=== PATIENT | male | born 1955 | race Caucasian/White ===

== ENCOUNTER → 2017-11-15 | Outpatient (CLI) | payer OTHER ==
[2017-11-15 07:59] LABS: Basophils # (auto) 0 uL; Basophils % (auto) 0.7 % (0.0-2.0); Eosinophils # (auto) 0.1 uL; Eosinophils % (auto) 2.6 % (0.0-7.0); Hematocrit 45.7 % (41.0-53.0); Hemoglobin 15.9 g/dL (13.5-17.5); Lymphocytes % (auto) 38.7 % (10.0-50.0); Mean Corpuscular Hemoglobin 31.6 pg (28.0-32.0); Mean Corpuscular Hgb Conc. 34.8 g/dL (32.0-36.0); Mean Corpuscular Volume 90.8 fL (80.0-100.0); Monocytes # (auto) 0.4 uL; Monocytes % (auto) 8.7 % (0.0-12.0); Neutrophils # (auto) 2.5 uL; Neutrophils % (auto) 49.3 % (37.0-80.0); Platelet Count (auto) 228 10^3/uL (140-450); Red Blood Cells 5.03 10^6/uL (4.5-5.90); Red Cell Distribution Width 12.7 % (11.8-14.3); White Blood Cell 5.1 10^3/uL (4.4-10.8)
[2017-11-15 08:17] LABS: Urine Bacteria NONE SEEN /hpf (None Seen); Urine Blood Negative /uL (Negative); Urine Specific Gravity 1.018 (1.001-1.035); Urine WBC 1 /hpf (0 - 3)
[2017-11-15 09:06] LABS: Prostate Specific Antigen 0.71 ng/mL (0.0-4.0)
[2017-11-15 09:14] LABS: Albumin 4.3 g/dL (3.4-5.0); BUN/Creatinine Ratio 22.4; Bilirubin, Total 0.6 mg/dL (0.2-1.0); Potassium 3.9 mmol/L (3.5-5.1); Total Protein 7.8 g/dL (6.4-8.2)
== END | disposition home or self-care (01) ==
LOC: LAB 07:41
PROVIDERS: ATTEND Family Medicine
DX: I10 Essential (primary) hypertension (principal); I48.91 Unspecified atrial fibrillation; Z83.3 Family history of diabetes mellitus
CPT/HCPCS: 36415; 80053; 80061; 81001; 82306; 82607; 83036; 84153; 84443; 85025

== ENCOUNTER → 2018-01-26 | Outpatient (CLI) | payer OTHER ==
[~2018-01-26] VITALS: Ht 188 cm; Wt 89.8 kg
[~2018-01-26] MED LIST: ADENOSINE 75 MG in GIVE UN-DILUTED 0 ML IV STA
[2018-01-26 10:25] VITALS: BP 144/75
== END | disposition home or self-care (01) ==
LOC: XY 07:41
PROVIDERS: ATTEND Internal Medicine
DX: I48.91 Unspecified atrial fibrillation (principal); I10 Essential (primary) hypertension
CPT/HCPCS: 78452; 93017; A9500; J0153

== ENCOUNTER → 2018-02-01 | Outpatient (CLI) | payer OTHER | END | disposition home or self-care (01) | LOC: XYW 10:45 | PROVIDERS: ATTEND Internal Medicine | DX: I48.91 Unspecified atrial fibrillation (principal); I10 Essential (primary) hypertension; Z83.3 Family history of diabetes mellitus | CPT/HCPCS: 93306 ==

== ENCOUNTER → 2019-02-16 | Outpatient (CLI) | payer OTHER ==
[2019-02-16 08:26] LABS: Basophils # (auto) 0 uL; Basophils % (auto) 0.5 % (0.0-2.0); Eosinophils # (auto) 0.1 uL; Hematocrit 44.8 % (41.0-53.0); Hemoglobin 15.8 g/dL (13.5-17.5); Lymphocytes # (auto) 2.2 uL; Lymphocytes % (auto) 37.9 % (10.0-50.0); Mean Corpuscular Hemoglobin 31.6 pg (28.0-32.0); Mean Corpuscular Hgb Conc. 35.2 g/dL (32.0-36.0); Mean Corpuscular Volume 89.6 fL (80.0-100.0); Monocytes # (auto) 0.6 uL; Monocytes % (auto) 10.1 % (0.0-12.0); Neutrophils # (auto) 2.8 uL; Neutrophils % (auto) 49.5 % (37.0-80.0); Nucleated Red Blood Cells % 0.1 %; Platelet Count (auto) 203 10^3/uL (140-450); Red Blood Cells 4.99 10^6/uL (4.5-5.90); Red Cell Distribution Width 12.9 % (11.8-14.3); White Blood Cell 5.7 10^3/uL (4.4-10.8)
[2019-02-16 08:36] LABS: Potassium 3.9 mmol/L (3.5-5.1)
[2019-02-16 08:48] LABS: Albumin 4.3 g/dL (3.4-5.0); BUN/Creatinine Ratio 27.4; Bilirubin, Total 0.7 mg/dL (0.2-1.0); Calcium 9.5 mg/dL (8.5-10.1); Total Protein 7.5 g/dL (6.4-8.2)
[2019-02-16 09:05] LABS: Urine Bacteria NONE SEEN /hpf (None Seen); Urine Blood Negative /uL (Negative); Urine Specific Gravity 1.013 (1.001-1.035); Urine WBC 2 /hpf (0 - 3)
== END | disposition home or self-care (01) ==
LOC: LAB 07:41
PROVIDERS: ATTEND Family Medicine
DX: I48.0 Paroxysmal atrial fibrillation (principal); E11.9 Type 2 diabetes mellitus without complications; E78.5 Hyperlipidemia, unspecified; I10 Essential (primary) hypertension
CPT/HCPCS: 36415; 80053; 80061; 81001; 82043; 82306; 83036; 85025

== ENCOUNTER 2019-05-16 10:36 | Inpatient (IN) | payer OTHER, MEDICARE ==
[~2019-05-16] VITALS: Ht 188 cm; Wt 93.5 kg
[2019-05-16 11:14] LABS: Basophils # (auto) 0.1 uL; Basophils % (auto) 0.5 % (0.0-2.0); Eosinophils # (auto) 0 uL; Eosinophils % (auto) 0.4 % (0.0-7.0); Hematocrit 44.8 % (41.0-53.0); Hemoglobin 16.2 g/dL (13.5-17.5); Lymphocytes # (auto) 1.4 uL; Lymphocytes % (auto) 12.9 % (10.0-50.0); Mean Corpuscular Hemoglobin 31.5 pg (28.0-32.0); Mean Corpuscular Hgb Conc. 36.1 g/dL (32.0-36.0); Mean Corpuscular Volume 87.4 fL (80.0-100.0); Monocytes # (auto) 0.7 uL; Monocytes % (auto) 6.2 % (0.0-12.0); Neutrophils # (auto) 8.7 uL; Platelet Count (auto) 211 10^3/uL (140-450); Red Blood Cells 5.12 10^6/uL (4.5-5.90); Red Cell Distribution Width 12.9 % (11.8-14.3); White Blood Cell 10.9 10^3/uL (4.4-10.8)
[2019-05-16 11:31] LABS: Albumin 4.4 g/dL (3.4-5.0); Anion Gap 7 (5-15); Blood Urea Nitrogen 19 mg/dL (7-18); Calcium 9.4 mg/dL (8.5-10.1); Carbon Dioxide 26 mmol/L (21-32); Chloride 107 mmol/L (98-107); Glucose 153 mg/dL (74-106); Lipase 196 U/L (73-393); Sodium 140 mmol/L (136-145)
[2019-05-16 11:36] LABS: Alanine Aminotransferase 86 U/L (16-61); Alkaline Phosphatase 77 U/L (45-117); Aspartate Aminotransferase 94 U/L (15-37); BUN/Creatinine Ratio 21.1; Bilirubin, Total 0.9 mg/dL (0.2-1.0); GFR African American 109 mL/min; GFR Non-African American 90 mL/min; Total Protein 7.8 g/dL (6.4-8.2)
[2019-05-16 11:38] LABS: Urine Bacteria NONE SEEN /hpf (None Seen); Urine Blood Negative /uL (Negative); Urine WBC 1 /hpf (0 - 3)
[2019-05-16 12:24] LABS: INR 0.99 (0.9-1.15); Partial Thromboplastin Time 27.2 sec (23.64-32.05)
[2019-05-16] MEDS ORDERED: MORPHINE SULF INJ 2 MG/ML SYRINGE 1ML IV PRN ×2 (14:00)
[2019-05-16] MEDS ORDERED: NITROGLYCERIN 0.4 MG SL TAB SL PRN (14:00)
[2019-05-16] MEDS ORDERED: DEXTROSE (50%) 50ML SYRG IV PRN (14:00)
[2019-05-16] MEDS ORDERED: ONDANSETRON HCL 4 MG/2 ML VIAL IV PRN (14:00)
[2019-05-16] MEDS ORDERED: ACETAMINOPHEN 500 MG TAB PO PRN (14:00)
[2019-05-16] MEDS ORDERED: HYDROcodone-ACET 5/325MG TAB PO PRN (14:00)
[2019-05-16] MEDS: SODIUM CHLORIDE 0.9% 1,000 ML IV SCH (15:03)
[2019-05-16] MEDS: metroNIDAZOLE 500MG/100ML 100 ML IV SCH ×2 (15:04→21:14)
[2019-05-16] MEDS: InsuLIN REG 1unit/0.01ml Soln (100units/ml) SC SCH ×2 (17:00→21:15)
[2019-05-16] MEDS: ACCU-CHEK COMFORT CURVE STRIP VI SCH ×2 (17:38→21:15)
[2019-05-16] MEDS ORDERED: ASPI-404 PO (18:36)
[2019-05-16] MEDS ORDERED: LISI-646 PO (18:36)
[2019-05-16] MEDS ORDERED: CHOL400C12 PO (18:36)
[2019-05-16] MEDS ORDERED: METF-916 PO (18:36)
[2019-05-16] MEDS ORDERED: CYAN1TAB14 PO (18:36)
[2019-05-16] MEDS ORDERED: GEMF600T7 PO (18:36)
[2019-05-16] MEDS ORDERED: CLOP75TA28 PO (18:36)
[2019-05-16] MEDS: FAMOTIDINE (10MG/ML) 2ML VL IV SCH (21:14)
[2019-05-16 22:00] VITALS: BP_SYST 118; BP_SYST 119; BP_DIAS 62
[2019-05-17] MEDS: SODIUM CHLORIDE 0.9% 1,000 ML IV SCH ×2 (04:26→16:40)
[2019-05-17 05:00] VITALS: BP 110/66
[2019-05-17] MEDS: InsuLIN REG 1unit/0.01ml Soln (100units/ml) SC SCH ×4 (06:22→21:21)
[2019-05-17] MEDS: ACCU-CHEK COMFORT CURVE STRIP VI SCH ×4 (06:22→21:10)
[2019-05-17] MEDS: metroNIDAZOLE 500MG/100ML 100 ML IV SCH ×3 (06:22→21:09)
[2019-05-17 06:34] LABS: Basophils # (auto) 0 uL; Basophils % (auto) 1.1 % (0.0-2.0); Eosinophils # (auto) 0.1 uL; Eosinophils % (auto) 2.3 % (0.0-7.0); Hematocrit 41.1 % (41.0-53.0); Hemoglobin 14.9 g/dL (13.5-17.5); Lymphocytes # (auto) 1.5 uL; Lymphocytes % (auto) 35.2 % (10.0-50.0); Mean Corpuscular Hemoglobin 31.6 pg (28.0-32.0); Mean Corpuscular Hgb Conc. 36.3 g/dL (32.0-36.0); Mean Corpuscular Volume 86.9 fL (80.0-100.0); Monocytes # (auto) 0.4 uL; Monocytes % (auto) 8.6 % (0.0-12.0); Neutrophils # (auto) 2.2 uL; Neutrophils % (auto) 52.8 % (37.0-80.0); Nucleated Red Blood Cells % 0.2 %; Platelet Count (auto) 193 10^3/uL (140-450); Red Blood Cells 4.73 10^6/uL (4.5-5.90); Red Cell Distribution Width 12.9 % (11.8-14.3); White Blood Cell 4.2 10^3/uL (4.4-10.8)
[2019-05-17 06:49] LABS: Albumin 3.7 g/dL (3.4-5.0); BUN/Creatinine Ratio 17.1; Calcium 8.6 mg/dL (8.5-10.1); Potassium 3.9 mmol/L (3.5-5.1)
[2019-05-17 06:52] LABS: Bilirubin, Total 0.7 mg/dL (0.2-1.0); Total Protein 6.6 g/dL (6.4-8.2)
--- NOTE | 2019-05-17 07:32 | NUR ---
Opening Note Assumed pt care form NOC nurse. Pt is a/ox4 with no s/s of distress or SOB. PT is currently laying in bed with no complaints. Discussed POC with pt and the need to stay NPO for the time; pt verbalized understanding. Safety measures maintained with call light within reach, bed in lowest position and side rails up. Will continue to monitor for changes q1hr and prn.
[2019-05-17] MEDS: cefTRIAXone 1GM/50ML D5W 50 ML IV SCH (08:27)
[2019-05-17] MEDS: FAMOTIDINE (10MG/ML) 2ML VL IV SCH ×2 (08:49→21:10)
[2019-05-17] MEDS: LISINOPRIL 5 MG TAB PO SCH (08:51)
[2019-05-17 09:00] VITALS: BP 122/76
--- NOTE | 2019-05-17 09:50 | NUR ---
Dr Crocker At Bedside
[2019-05-17 13:00] VITALS: BP 118/73
[2019-05-17 17:00] VITALS: BP 117/69
[2019-05-17 22:00] VITALS: BP 121/75
[2019-05-18] MEDS: SODIUM CHLORIDE 0.9% 1,000 ML IV SCH ×3 (05:24→18:49)
[2019-05-18] MEDS: metroNIDAZOLE 500MG/100ML 100 ML IV SCH ×3 (05:25→21:20)
[2019-05-18 05:27] VITALS: BP 129/75
[2019-05-18] MEDS: InsuLIN REG 1unit/0.01ml Soln (100units/ml) SC SCH ×4 (06:13→21:22)
[2019-05-18] MEDS: ACCU-CHEK COMFORT CURVE STRIP VI SCH ×4 (06:13→21:21)
[2019-05-18 06:41] LABS: INR 1.03 (0.9-1.15); Partial Thromboplastin Time 26.8 sec (23.64-32.05)
--- NOTE | 2019-05-18 07:40 | NUR ---
Opening Note Assumed pt care from NOC nurse. Pt is a/ox4 with no s/s of distress or SOB. Pt is currently laying in bed with no complaints. Pt has been NPO status since 0000 for lap/open choly today; pending confusion with cardiac clearance. OR nurse is aware of confusion and Dr Molina is contacting for clearance. Discussed POC with pt; pt verbalized understanding. Safety measures maintained with call light within reach, bed in lowest position and side rails up. Will continue to monitor for changes q1hr and prn.
[2019-05-18] MEDS: cefTRIAXone 1GM/50ML D5W 50 ML IV SCH (08:29)
[2019-05-18 09:00] VITALS: BP 127/68
--- NOTE | 2019-05-18 09:15 | NUR ---
Took Pt Down to OR for Procedure Pt is a/ox4 with no s/s of distress or SOB.
[2019-05-18] MEDS: FAMOTIDINE (10MG/ML) 2ML VL IV SCH ×2 (09:35→21:21)
[2019-05-18] MEDS: LISINOPRIL 5 MG TAB PO SCH (09:35)
[2019-05-18] MEDS ORDERED: LIDOCAINE 1% (LOCAL ANESTH.) PF 5ml SDV ONE (09:40)
[2019-05-18] MEDS ORDERED: SUCCINYLCHOLINE CHLORIDE 20 MG/ML 10ML VIAL IV ONE (09:40)
[2019-05-18] MEDS ORDERED: MIDAZOLAM HCL 1MG/1ML-2 ML VIAL ONE (09:42)
[2019-05-18] MEDS ORDERED: ETOMIDATE (2MG/ML) 20ML VIAL IV ONE (09:43)
[2019-05-18] MEDS ORDERED: ROCURONIUM 10MG/ML 10ML VIAL IV ONE (09:43)
[2019-05-18] MEDS ORDERED: METOCLOPRAMIDE HCL 5MG/ml INJ 2ml VIAL ONE (09:50)
[2019-05-18] MEDS ORDERED: fentaNYL CITRATE 100 MCG/2 ML VL ONE (10:01)
[2019-05-18] MEDS ORDERED: NALOXONE HCL 0.4 MG/ML VIAL IV PRN (10:15)
[2019-05-18] MEDS ORDERED: HYDROmorphone HCL 2 MG/ML VL IV PRN (10:15)
[2019-05-18] MEDS ORDERED: ONDANSETRON HCL 4 MG/2 ML VIAL IV PRN (10:15)
[2019-05-18] MEDS ORDERED: hydrALAZINE HCL 20 MG/ML VL ONE (10:19)
[2019-05-18] MEDS ORDERED: GLYCOPYRROLATE 0.2 MG/ML 1ML VIAL ONE (10:28)
[2019-05-18] MEDS ORDERED: NEOSTIGMINE 1 MG/ML INJ (10mg/10ML VIAL) ONE (10:28)
[2019-05-18] MEDS: HYDROmorphone HCL 2 MG/ML VL IV PRN ×3 (10:43→11:03)
--- NOTE | 2019-05-18 11:45 | NUR ---
Pt Back on Unit from OR Pt back to unit via stretcher post ned crabtree. Pt is a/ox4 with no s/s of distress or SOB. Pt is currently laying supine with 3L NC O2 on. Abdominal binder is present. 3 small incisions with dressings are fully intact and clean. Pt states that he is not in any pain. Instructed pt to press call light for any assistance. Will continue to monitor for changes q1hr and prn.
[2019-05-18 11:52] VITALS: BP 125/67
[2019-05-18 13:00] VITALS: BP 122/68
--- NOTE | 2019-05-18 14:37 | NUR ---
Pt Ambulated to Bathroom w/o difficulty
[2019-05-18 16:45] VITALS: BP 122/66
--- NOTE | 2019-05-18 19:30 | NUR ---
PM NOTE INTRODUCED SELF TO PT PT LAYING IN BED RESTING, A&OX4, RESPIRATION ARE NORMAL AND NON-LABORED, NO DISTRESS NOTED, DENIES ANY PAIN, N/V. BED IN LOWEST POSITION, CALL LIGHT WITHIN REACH. PT IS AWARE OF PLAN OF CARE. WILL CONTINUE TO MONITOR. Signed: 05/18/19 at 2152 by JMI WOLFE SN <Co-Signature Required> Co-Signed: 05/18/19 at 2152 by Claudia Bowen RN
[2019-05-18 22:26] VITALS: BP 118/72
[2019-05-19 05:12] VITALS: BP 111/56
[2019-05-19] MEDS: InsuLIN REG 1unit/0.01ml Soln (100units/ml) SC SCH ×4 (05:57→21:44)
[2019-05-19] MEDS: ACCU-CHEK COMFORT CURVE STRIP VI SCH ×4 (05:57→21:44)
[2019-05-19] MEDS: metroNIDAZOLE 500MG/100ML 100 ML IV SCH ×3 (05:58→21:44)
[2019-05-19 06:14] LABS: Basophils # (auto) 0.1 uL; Basophils % (auto) 0.9 % (0.0-2.0); Eosinophils # (auto) 0.1 uL; Eosinophils % (auto) 1.2 % (0.0-7.0); Hematocrit 38.1 % (41.0-53.0); Hemoglobin 13.7 g/dL (13.5-17.5); Lymphocytes # (auto) 1.2 uL; Lymphocytes % (auto) 20.2 % (10.0-50.0); Mean Corpuscular Hemoglobin 31.9 pg (28.0-32.0); Mean Corpuscular Hgb Conc. 35.8 g/dL (32.0-36.0); Mean Corpuscular Volume 89.1 fL (80.0-100.0); Monocytes # (auto) 0.6 uL; Monocytes % (auto) 9.9 % (0.0-12.0); Neutrophils # (auto) 4.1 uL; Neutrophils % (auto) 67.8 % (37.0-80.0); Nucleated Red Blood Cells % 0.2 %; Platelet Count (auto) 161 10^3/uL (140-450); Red Blood Cells 4.28 10^6/uL (4.5-5.90); Red Cell Distribution Width 12.8 % (11.8-14.3)
[2019-05-19 06:43] LABS: Calcium 7.9 mg/dL (8.5-10.1); Potassium 3.4 mmol/L (3.5-5.1)
[2019-05-19 06:49] LABS: Albumin 3.1 g/dL (3.4-5.0); BUN/Creatinine Ratio 12.8; Bilirubin, Total 0.7 mg/dL (0.2-1.0); Total Protein 5.7 g/dL (6.4-8.2)
--- NOTE | 2019-05-19 07:45 | NUR ---
OPENING SHIFT NOTE ASSUMED CARE OF PATIENT. PATIENT AWAKE AND ALERT SITTING UP IN BED ON THE PHONE. NO S/S OF DISTRESS OR SOB NOTED. BED IN LOWEST LOCKED POSITION, CALL LIGHT WITHIN REACH. WILL CONTINUE TO MONITOR.
[2019-05-19 09:00] VITALS: BP 116/68
[2019-05-19] MEDS: FAMOTIDINE (10MG/ML) 2ML VL IV SCH ×2 (09:24→21:45)
[2019-05-19] MEDS: LISINOPRIL 5 MG TAB PO SCH (09:24)
[2019-05-19] MEDS: cefTRIAXone 1GM/50ML D5W 50 ML IV SCH (09:26)
[2019-05-19] MEDS: SODIUM CHLORIDE 0.9% 1,000 ML IV SCH ×2 (09:38→21:44)
--- NOTE | 2019-05-19 10:00 | NUR ---
AT BEDSIDE DR Sawpnil HOLLINGSWORTH AT BEDSIDE, ORDERS RECEIVED TO ADVANCE DIET. WILL CARRY OUT ORDERS RECEIVED. CONTINUING TO MONITOR.
[2019-05-19 12:30] VITALS: BP 136/79
[2019-05-19 17:29] VITALS: BP 155/77
--- NOTE | 2019-05-19 19:25 | NUR ---
OPENING SHIFT NOTE ASSUMED CARE OF PATIENT. PATIENT AWAKE AND ALERT LAYING IN BED. NO S/S OF DISTRESS OR SOB NOTED. BED IN LOWEST LOCKED POSITION, CALL LIGHT WITHIN REACH. REVIEWED POC WITH PATIENT AND INSTRUCTED TO CALL FOR ASSIST NEEDED. WILL CONTINUE TO MONITOR.
[2019-05-19 23:29] VITALS: BP 129/69
--- NOTE | 2019-05-20 | NUR ---
Transfer of care and report 2/2 staffing changes: THIS RN ASSUMED CARE OF PATIENT. PATIENT ROUSED EASILY WITH ACTIVITY IN RM. ON SIDE IN BED. NO S/S OF DISTRESS OR SOB NOTED. BBS CLEAR AND EQUAL. UP TO BR; AMB INDEPENDENTLY. PPP AND EQUAL. DENIES PAIN AT THIS TIME. BED IN LOW LOCKED POSITION, CALL LIGHT WITHIN REACH. PT TO CALL FOR ASSIST NEEDED. WILL CONTINUE TO MONITOR.
[2019-05-20 05:36] VITALS: BP 132/71
[2019-05-20] MEDS: InsuLIN REG 1unit/0.01ml Soln (100units/ml) SC SCH ×2 (07:00→11:20)
[2019-05-20] MEDS: metroNIDAZOLE 500MG/100ML 100 ML IV SCH (07:13)
[2019-05-20] MEDS: ACCU-CHEK COMFORT CURVE STRIP VI SCH ×2 (07:19→11:21)
--- NOTE | 2019-05-20 07:25 | NUR ---
OPENING SHIFT NOTE ASSUMED CARE OF PATIENT. PATIENT AWAKE AND ALERT SITTING UP IN BED. NO S/S OF DISTRESS OR SOB NOTED. BED IN LOWEST LOCKED POSITION, CALL LIGHT WITHIN REACH. REVIEWED POC WITH PATIENT, PATIENT VERBALIZED UNDERSTANDING. WILL CONTINUE TO MONITOR.
[2019-05-20 08:39] VITALS: BP 145/82
[2019-05-20] MEDS: cefTRIAXone 1GM/50ML D5W 50 ML IV SCH (09:05)
[2019-05-20] MEDS: FAMOTIDINE (10MG/ML) 2ML VL IV SCH (09:06)
[2019-05-20] MEDS: LISINOPRIL 5 MG TAB PO SCH (09:06)
[2019-05-20 11:36] VITALS: BP 145/82
--- NOTE | 2019-05-20 12:15 | NUR ---
DISCHARGED PATIENT DISCHARGED HOME VIA AMBULATORY TO OWN PRIVATE VEHICLE AFTER ALL DISCHARGE INSTRUCTIONS REVIEWED AND ALL QUESTIONS AND CONCERNS ADDRESSED. PATIENT AWARE TO MAKE FOLLOW UP APPOINTMENT WITHIN 1 WEEK WITH PCP AND POST OP APPOINTMENT WITH SURGEON. IV WAS REMOVED USING CLEAN STERILE TECHNIQUE, PRESSURE DRESSING APPLIED. CATHETER INTACT UPON REMOVAL. TELE REMOVED, CLEANED AND RETURNED TO [facility]. PATIENT SHOWED NO S/S OF DISTRESS OR SOB NOTED UPON DISCHARGE.
[2019-05-20 13:00] VITALS: BP 135/78
== END 2019-05-20 12:15 | disposition home or self-care (01) | DRG 419 ==
LOC: ER 10:36 → TELE 10:37 → TELE-WESTW 15:31
PROVIDERS: ADMIT Nurse Practitioner Acute Care; ATTEND Family Medicine
PROC: 0FT44ZZ Resection of Gallbladder, Percutaneous Endoscopic Approach (ICD-10-PCS; principal; 2019-05-18 09:45)
DX: K80.62 Calculus of gallbladder and bile duct with acute cholecystitis without obstruction (principal); E11.9 Type 2 diabetes mellitus without complications; E78.00 Pure hypercholesterolemia, unspecified; I10 Essential (primary) hypertension; I48.0 Paroxysmal atrial fibrillation; E78.5 Hyperlipidemia, unspecified; I70.8 Atherosclerosis of other arteries; K57.30 Diverticulosis of large intestine without perforation or abscess without bleeding; K76.0 Fatty (change of) liver, not elsewhere classified; I48.91 Unspecified atrial fibrillation; K21.9 Gastro-esophageal reflux disease without esophagitis; M19.90 Unspecified osteoarthritis, unspecified site; R16.0 Hepatomegaly, not elsewhere classified; Z79.02 Long term (current) use of antithrombotics/antiplatelets; Z79.84 Long term (current) use of oral hypoglycemic drugs; Z80.1 Family history of malignant neoplasm of trachea, bronchus and lung; Z82.49 Family history of ischemic heart disease and other diseases of the circulatory system; Z79.899 Other long term (current) drug therapy; Z88.0 Allergy status to penicillin
CPT/HCPCS: 36415; 71045; 74176; 76705; 78226; 80053; 81001; 82962; 83036; 83690; 83735; 84484; 85025; 85610; 85730; 86850; 86900; 86901; 93005; G0378; J0330; J0696; J2250; J2405; J3490

== ENCOUNTER 2019-10-21 10:29 | Inpatient (IN) | payer BC, MEDICARE ==
[~2019-10-21] VITALS: Ht 188 cm; Wt 85.7 kg
[~2019-10-21 10:29] MED LIST changes: -ADENOSINE 75 MG in GIVE UN-DILUTED 0 ML IV STA; +ASPI-404 PO; +CHOL400C12 PO; +CLOP75TA28 PO; +CYAN1TAB14 PO; +GEMF600T7 PO; +LISI-646 PO; +METF-916 PO
[2019-10-21 11:27] LABS: Basophils # (auto) 0 uL; Basophils % (auto) 0.4 % (0.0-2.0); Eosinophils # (auto) 0 uL; Eosinophils % (auto) 0.1 % (0.0-7.0); Hematocrit 44.5 % (41.0-53.0); Hemoglobin 15.4 g/dL (13.5-17.5); Lymphocytes % (auto) 20.8 % (10.0-50.0); Mean Corpuscular Hemoglobin 31.1 pg (28.0-32.0); Mean Corpuscular Hgb Conc. 34.7 g/dL (32.0-36.0); Mean Corpuscular Volume 89.5 fL (80.0-100.0); Monocytes # (auto) 0.7 uL; Monocytes % (auto) 14.8 % (0.0-12.0); Neutrophils # (auto) 3.1 uL; Neutrophils % (auto) 63.9 % (37.0-80.0); Nucleated Red Blood Cells % 0.5 %; Platelet Count (auto) 172 10^3/uL (140-450); Red Blood Cells 4.97 10^6/uL (4.5-5.90); White Blood Cell 4.8 10^3/uL (4.4-10.8)
[2019-10-21 11:44] LABS: Albumin 3.7 g/dL (3.4-5.0); Calcium 9.1 mg/dL (8.5-10.1); Magnesium 2.3 mg/dL (1.6-2.6); Potassium 3.8 mmol/L (3.5-5.1)
[2019-10-21 11:47] LABS: BUN/Creatinine Ratio 18.5; Bilirubin, Total 0.6 mg/dL (0.2-1.0); Total Protein 7.5 g/dL (6.4-8.2)
[2019-10-21] MEDS ORDERED: SODIUM CHLORIDE 0.9% 1,000 ML IVB ONE (13:09)
[2019-10-21 13:36] LABS: INR 1.06 (0.9-1.15); Partial Thromboplastin Time 28.8 sec (23.64-32.05)
[2019-10-21 14:06] LABS: Urine Bacteria NONE SEEN /hpf (None Seen); Urine Blood 1+ /uL (Negative); Urine Mucus FEW (None Seen); Urine Specific Gravity 1.027 (1.001-1.035); Urine WBC 1 /hpf (0 - 3)
[2019-10-21] MEDS ORDERED: ACETAMINOPHEN 500 MG TAB PO ONE (15:30)
[2019-10-21] MEDS ORDERED: IOHEXOL 350 MG/ML 100ML IJ ONE (15:37)
[2019-10-21] MEDS ORDERED: ASPirin-EC 81 mg tab PO ONE (16:45)
[2019-10-21] MEDS ORDERED: PROMETHAZINE HCL 25 MG/ML 1ML IV PRN (17:15)
[2019-10-21] MEDS ORDERED: ALBUTEROL SULF 2.5 MG/0.5ML(0.5%) NEB SOLN NEB PRN (17:15)
[2019-10-21] MEDS ORDERED: NITROGLYCERIN 0.4 MG SL TAB SL PRN (17:15)
[2019-10-21] MEDS ORDERED: DEXTROSE (50%) 50ML SYRG IV PRN (17:15)
[2019-10-21] MEDS ORDERED: MORPHINE SULF INJ 2 MG/ML SYRINGE 1ML IV PRN (17:15)
[2019-10-21] MEDS ORDERED: TEMAZEPAM 15 MG CAP PO PRN (17:15)
[2019-10-21] MEDS: SODIUM CHLORIDE 0.9% 1,000 ML IV SCH (17:36)
--- NOTE | 2019-10-21 19:50 | NUR ---
Telemetry admit from SAC[facility] ALMAGUER admitted to Telemetry unit, oriented to ISAI BARRIOS, RN primary RN, unit, room, bed, and unit policies regarding patient care and visiting hours. Patient now on continuous telemetry monitoring, tele box # 67 and telemetry reading on arrival to unit is sinus rhythm at 83 beats per minute with bundle branch block and PAC's. Patient placed weighed by bedscale and encouraged to call if they need something. All questions and concerns addressed, patient verbalized understanding. Bed in lowest locked position, side rails up x2, call light within reach. Will round every hour PRN and continue to monitor.
[2019-10-21] MEDS: InsuLIN REG 1unit/0.01ml Soln (100units/ml) SC SCH (21:30)
[2019-10-21] MEDS: ACCU-CHEK COMFORT CURVE STRIP VI SCH (21:30)
[2019-10-21 21:59] VITALS: BP 137/77
[2019-10-21 22:00] VITALS: BP 127/69
[2019-10-21] MEDS ORDERED: GEMF600T7 PO (22:16)
[2019-10-21] MEDS ORDERED: METF-370 PO (22:16)
[2019-10-21] MEDS ORDERED: INFLUENZA QUAD 2019-2020 0.5ml SYRG IM ONE (22:30)
--- NOTE | 2019-10-22 00:44 | NUR ---
Respiratory note: PT SEEN AND ASSESSED FOR PRN MED NEB TX AT 0044. TX NOT INDICATED AT THIS TIME. PT IS CURRENTLY SLEEPING, NO DISTRESS NOTED. HR 84 RR 16 POX 96% ON ROOM AIR.
[2019-10-22 05:30] VITALS: BP 115/74
[2019-10-22 06:29] LABS: Cholesterol 149 mg/dL (< 200); HDL Cholesterol 28 mg/dL (40-59); LDL Cholesterol 96 mg/dL (< 100); Triglycerides 153 mg/dL (< 150)
[2019-10-22] MEDS ORDERED: INFLUENZA QUAD 2019-2020 0.5ml SYRG IM ONE (06:45)
[2019-10-22] MEDS: InsuLIN REG 1unit/0.01ml Soln (100units/ml) SC SCH ×4 (06:56→21:56)
[2019-10-22] MEDS: ACCU-CHEK COMFORT CURVE STRIP VI SCH ×4 (06:56→21:56)
[2019-10-22] MEDS: SODIUM CHLORIDE 0.9% 1,000 ML IV SCH ×2 (06:56→19:48)
--- NOTE | 2019-10-22 07:15 | NUR ---
Respiratory note: PT ASSESSED FOR PRN MED NEB TX. PT DENIES ANY SOB AT THIS TIME. SPO2 94% ON R/A, HR 86, RR 18. NO INDICATION FOR PRN. PT INFORMED TO HAVE RT PAGED IF NEEDED.
--- NOTE | 2019-10-22 07:30 | NUR ---
Closing Note Patient lying in bed, eyes closed, respirations even and unlabored, appears asleep. No s/s of distress. Care endorsed to dayshift RN.
--- NOTE | 2019-10-22 08:00 | NUR ---
Received pt resting in bed, call light within reach, no pain or distress noted or reported at this time, will continue to monitor pt.
--- NOTE | 2019-10-22 08:05 | NUR ---
Na, BEHAVIORAL GENETICIST / cardio at unit to see pt.
[2019-10-22 09:00] VITALS: BP 135/80
[2019-10-22] MEDS: ASPirin 81 mg TAB PO SCH (09:35)
[2019-10-22] MEDS: LISINOPRIL 20 MG TAB PO SCH (09:35)
[2019-10-22] MEDS: ENOXAPARIN SOD 40 MG/0.4 ML SYRINGE SC SCH (09:36)
[2019-10-22] MEDS ORDERED: NITROGLYCERIN 0.2MG/HR TOPICAL PATCH TD SCH (10:00)
--- NOTE | 2019-10-22 10:35 | NUR ---
Pt taken to nuclear medicine for the stress test.
[2019-10-22] MEDS ORDERED: ADENOSINE 75 MG in GIVE UN-DILUTED 0 ML IV STA (10:49)
[2019-10-22 11:45] VITALS: BP 136/86
[2019-10-22 13:00] VITALS: BP 137/82
--- NOTE | 2019-10-22 14:00 | NUR ---
Pt back to room from stress lab, pt informed that he is able to eat, food tray given, handling tech at bed side to do echocardiogram. Call light with in reach.
[2019-10-22] MEDS ORDERED: guaiFENesin-DM 100/10mg/5ml SYR PO PRN (15:30)
[2019-10-22] MEDS: ACETAMINOPHEN 500 MG TAB PO PRN ×2 (16:02→21:56)
[2019-10-22 17:00] VITALS: BP 122/70
--- NOTE | 2019-10-22 21:10 | NUR ---
Respiratory note: PT ASSESSED FOR PRN MED NEB TX. HR 74, RR 14, SPO2 95% ON RA. NO SIGNS OF ANY RESPIRATORY DISTRESS NOTED. ADVISED PT TO CALL IF TX IS NEEDED.
[2019-10-22 22:00] VITALS: BP 114/67
[2019-10-23] MEDS: ACETAMINOPHEN 500 MG TAB PO PRN ×3 (04:52→20:50)
[2019-10-23 05:00] VITALS: BP 123/67
[2019-10-23] MEDS: ACCU-CHEK COMFORT CURVE STRIP VI SCH ×4 (06:07→22:10)
[2019-10-23 06:08] LABS: Basophils # (auto) 0 10 ^3/uL (0-0.2); Basophils % (auto) 0.5 % (0.0-2.0); Eosinophils # (auto) 0 10 ^3/uL (0-0.8); Eosinophils % (auto) 0.4 % (0.0-7.0); Hematocrit 37.1 % (41.0-53.0); Hemoglobin 13.2 g/dL (13.5-17.5); Lymphocytes % (auto) 19.9 % (10.0-50.0); Mean Corpuscular Hemoglobin 31.8 pg (28.0-32.0); Mean Corpuscular Hgb Conc. 35.6 g/dL (32.0-36.0); Mean Corpuscular Volume 89.2 fL (80.0-100.0); Monocytes # (auto) 0.7 10 ^3/uL (0-1.3); Monocytes % (auto) 13.6 % (0.0-12.0); Neutrophils # (auto) 3.2 10 ^3/uL (1.6-8.6); Neutrophils % (auto) 65.6 % (37.0-80.0); Nucleated Red Blood Cells % 0.1 %; Platelet Count (auto) 159 10^3/uL (140-450); Red Blood Cells 4.17 10^6/uL (4.5-5.90); White Blood Cell 4.8 10^3/uL (4.4-10.8)
[2019-10-23] MEDS: InsuLIN REG 1unit/0.01ml Soln (100units/ml) SC SCH ×4 (06:08→22:00)
[2019-10-23 06:25] LABS: Albumin 2.9 g/dL (3.4-5.0); Potassium 3.3 mmol/L (3.5-5.1)
[2019-10-23 06:30] LABS: BUN/Creatinine Ratio 15.1; Bilirubin, Total 0.5 mg/dL (0.2-1.0); Total Protein 6.1 g/dL (6.4-8.2)
--- NOTE | 2019-10-23 08:30 | NUR ---
Respiratory note: PRN MED NEB TX NOT INDICATED AT THIS TIME. NO SIGNS OR SYMPTOMS OF RESPIRATORY DISTRESS NOTED. HR 69, RR 16, SPO2 95% RA, BS CLEAR AND DIMINISHED.PT INFORMED TO HIT CALL LIGHT IF FEELING SOB OR WHEEZING.
[2019-10-23 09:00] VITALS: BP 120/77
[2019-10-23] MEDS: SODIUM CHLORIDE 0.9% 1,000 ML IV SCH ×2 (09:44→22:11)
[2019-10-23] MEDS: ASPirin 81 mg TAB PO SCH (09:44)
[2019-10-23] MEDS ORDERED: POTASSIUM CHL 20 Meq TABLET PO ONE (09:45)
[2019-10-23] MEDS: ENOXAPARIN SOD 40 MG/0.4 ML SYRINGE SC SCH ×2 (09:45→09:48)
[2019-10-23] MEDS: LISINOPRIL 20 MG TAB PO SCH (09:45)
--- NOTE | 2019-10-23 11:49 | NUR ---
PT REPORTS THAT HE IS WALKING FINE AND DOES NOT NEED P.T. INTERVENTION AT THIS TIME.
[2019-10-23 13:00] VITALS: BP 150/84
[2019-10-23] MEDS ORDERED: levoFLOXacin 750MG 150 ML IV ONE (13:30)
--- NOTE | 2019-10-23 15:01 | NUR ---
H1N1 test Received nasal swab from lab and collected H1N1 test and sent back to lab with paperwork filled out to the best of my ability. Waiting for results. They said they had to send it out to [facility].
--- NOTE | 2019-10-23 15:03 | NUR ---
KALYN/Consents/NPO Dr. Preston wrote an order to keep patient NPO after midnight and said the patient will be getting a KALYN tomorrow according to Dr. Wasserman. There is no order for a KALYN at this time, but this nurse printed out the consents. The patient said no one had talked to him about a KALYN, so the consents were not signed but the checklist was filled out. Checklist and consents were placed in the chart.
[2019-10-23 17:00] VITALS: BP 148/92
--- NOTE | 2019-10-23 21:20 | NUR ---
Respiratory note: PT ASSESSED FOR PRN MED NEB TX. HR 78, RR 18, SPO2 96% ON RA. NO SIGNS OF ANY RESPIRATORY DISTRESS NOTED. ADVISED PT TO CALL IF TX IS NEEDED. RT NAME AND PAGER NUMBER WRITTEN ON PT'S BOARD.
[2019-10-23 22:24] VITALS: BP 123/73
[2019-10-24] MEDS: ACETAMINOPHEN 500 MG TAB PO PRN ×2 (05:55→15:48)
[2019-10-24] MEDS: ACCU-CHEK COMFORT CURVE STRIP VI SCH ×4 (05:55→21:39)
[2019-10-24] MEDS: InsuLIN REG 1unit/0.01ml Soln (100units/ml) SC SCH ×4 (05:55→21:39)
[2019-10-24 07:00] LABS: INR 1.13 (0.9-1.15); Partial Thromboplastin Time 30.8 sec (23.64-32.05)
[2019-10-24 07:07] LABS: Basophils # (auto) 0 10 ^3/uL (0-0.2); Basophils % (auto) 0.4 % (0.0-2.0); Eosinophils # (auto) 0 10 ^3/uL (0-0.8); Eosinophils % (auto) 0.4 % (0.0-7.0); Hematocrit 40.8 % (41.0-53.0); Hemoglobin 14.3 g/dL (13.5-17.5); Lymphocytes # (auto) 1.4 10 ^3/uL (0.4-5.4); Lymphocytes % (auto) 26.3 % (10.0-50.0); Mean Corpuscular Hemoglobin 31.2 pg (28.0-32.0); Mean Corpuscular Hgb Conc. 34.9 g/dL (32.0-36.0); Mean Corpuscular Volume 89.3 fL (80.0-100.0); Monocytes # (auto) 0.6 10 ^3/uL (0-1.3); Monocytes % (auto) 11.5 % (0.0-12.0); Neutrophils # (auto) 3.2 10 ^3/uL (1.6-8.6); Neutrophils % (auto) 61.4 % (37.0-80.0); Platelet Count (auto) 194 10^3/uL (140-450); Red Blood Cells 4.57 10^6/uL (4.5-5.90); Red Cell Distribution Width 12.8 % (11.8-14.3); White Blood Cell 5.3 10^3/uL (4.4-10.8)
[2019-10-24 07:13] LABS: Calcium 8.4 mg/dL (8.5-10.1); Potassium 3.7 mmol/L (3.5-5.1)
[2019-10-24 07:16] LABS: BUN/Creatinine Ratio 12.3; Bilirubin, Direct 0.2 mg/dL (0-0.2); Bilirubin, Total 0.5 mg/dL (0.2-1.0); Total Protein 6.7 g/dL (6.4-8.2)
[2019-10-24] MEDS: ENOXAPARIN SOD 40 MG/0.4 ML SYRINGE SC SCH (08:55)
[2019-10-24 09:00] VITALS: BP 127/76
--- NOTE | 2019-10-24 09:35 | NUR ---
KALYN Patient taken down in bed for KALYN. He has been NPO since midnight.
[2019-10-24] MEDS ORDERED: LIDOCAINE VISCOUS 2% 15ML UD PO ONE (09:45)
[2019-10-24] MEDS ORDERED: fentaNYL CITRATE 100 MCG/2 ML VL IV ONE (09:45)
[2019-10-24] MEDS ORDERED: MIDAZOLAM HCL 1MG/1ML-2 ML VIAL IV ONE (09:45)
[2019-10-24] MEDS: levoFLOXacin 750MG 150 ML IV SCH (11:29)
[2019-10-24] MEDS: ASPirin 81 mg TAB PO SCH (11:30)
[2019-10-24] MEDS: LISINOPRIL 20 MG TAB PO SCH (11:30)
[2019-10-24] MEDS: SODIUM CHLORIDE 0.9% 1,000 ML IV SCH (11:31)
[2019-10-24 12:59] VITALS: BP 131/75
[2019-10-24] MEDS ORDERED: DOXYCYCLINE 100MG/250ML 250 ML IV ONE (15:45)
--- NOTE | 2019-10-24 15:48 | NUR ---
Tylenol/Fever Gave PRN Tylenol for temp of 100.2 and patient complaints of feeling horrible and wanting to stop the increase in temperature before it gets higher again. Will continue to monitor.
[2019-10-24] MEDS: DOXYCYCLINE 100MG/250ML 250 ML IV SCH (16:11)
--- NOTE | 2019-10-24 16:32 | NUR ---
assessment Patient is a 64 year old male who is alert and oriented. Patients cognitive abilities are intact. Prior to admission patient lived home with family and functioned independently. Patient informed me he is able to care for his own ADLs. Per patient he will return home to his prior living arrangements post discharge and family will transport him home. Patient informed me he has no need for DME. Patient informed me he still works. Patient has no safety concerns regarding returning home on discharge. Patient has no post discharge needs identified. I informed patient he has a right to speak to a social services aide regarding all care. I informed patient he has a right to participate in any and all discharge planning. Patient does not have a POA and advanced directive. I have offered patient information on POA and advanced directives. I informed the patient the advantages and benefits of having an Advanced Directive. Patient verbalized understanding and agreed to discharge plan. Addendum: 10/24/19 at 1634 by Dinah NICHOLAS Amended: Links added.
--- NOTE | 2019-10-24 16:51 | NUR ---
Paged regarding patient concerns Patient stated he thinks he could have Lyme Disease or Valley Fever due to [place] in [place] and also working in [employer] in July. Paged MD to see if this is a possibility. Patient is concerned because his fever continues to reoccur and he is not getting better even with antibiotics. MD added a new antibiotic today. Patient said the doctor told him he would have to see a specialist (infectious disease) if the antibiotics don't work).
[2019-10-24 17:00] VITALS: BP 131/82
--- NOTE | 2019-10-24 19:20 | NUR ---
Respiratory note: PT RECIEVED ON RA. PT IS AWAKE AND ALERT. NO RESP DISTRESS NOTED. PRN TX NOT INDICATED AT THIS TIME. SPO2 93%, HR 74, RR 18, BS CLR/DIM T/O. MADE PT AWARE TO CALL FOR PRN TX IF SOB/WHEEZING.
--- NOTE | 2019-10-24 19:30 | NUR ---
Opening Shift Note Report received from day shift RM. Assumed care of patient, awake sitting in bed and A&O x4. No S/S of distress/SOB noted and patient denies pain at this time. Bed locked and left in the lowest position with the call light left within reach. Instructed on POC and to call for assist PRN, will continue to monitor for changes Q1hr and PRN.
[2019-10-24 21:58] VITALS: BP 119/79
[2019-10-24 23:09] VITALS: BP 119/79
[2019-10-25] MEDS: SODIUM CHLORIDE 0.9% 1,000 ML IV SCH ×2 (01:07→14:04)
[2019-10-25] MEDS: DOXYCYCLINE 100MG/250ML 250 ML IV SCH ×2 (03:26→17:38)
[2019-10-25 04:47] VITALS: BP 127/86
[2019-10-25 05:52] LABS: Albumin 2.7 g/dL (3.4-5.0)
[2019-10-25 05:55] LABS: Bilirubin, Direct 0.2 mg/dL (0-0.2); Bilirubin, Total 0.5 mg/dL (0.2-1.0); Total Protein 6.1 g/dL (6.4-8.2)
--- NOTE | 2019-10-25 06:30 | NUR ---
PATIENT REFUSED AM INSULIN, STATES HE ONLY WILL TAKE INSULIN IF HIS BLOOD GLUCOSE IS GREATER THAN 170. EDUCATED PATIENT ABOUT OUR SS PROTOCOL AND PATIENT CONTINUED TO REFUSE.
[2019-10-25] MEDS: InsuLIN REG 1unit/0.01ml Soln (100units/ml) SC SCH ×4 (06:42→22:00)
[2019-10-25] MEDS: ACCU-CHEK COMFORT CURVE STRIP VI SCH ×4 (06:42→22:00)
--- NOTE | 2019-10-25 07:38 | NUR ---
Opening Shift Note Assumed care of patient, awake and alert. No S/S of distress/SOB or pain. For safety, patients bed is locked in the lowest position with 2 side rails up and the call light with in reach. Instructed on POC and to call for assist PRN, will continue to monitor for any changes in condition.
[2019-10-25 09:00] VITALS: BP 127/75
[2019-10-25 09:22] LABS: Hepatitis A Total Antibody Negative
[2019-10-25 09:44] LABS: Hepatitis B Surface Antibody Negative
[2019-10-25] MEDS: ENOXAPARIN SOD 40 MG/0.4 ML SYRINGE SC SCH ×2 (10:00→11:13)
--- NOTE | 2019-10-25 10:56 | NUR ---
RT NOTE: WENT TO PTS ROOM TO ASSESS FOR PRN BREATHING TX, NO S/S OF SOB. NO INDICATION FOR TX AT THIS TIME. HR 72, RR 16, SPO2 95% ON RA. WILL CONTINUE TO MONITOR PT.
[2019-10-25] MEDS: levoFLOXacin 750MG 150 ML IV SCH (11:12)
[2019-10-25] MEDS: ASPirin 81 mg TAB PO SCH (11:12)
[2019-10-25] MEDS: LISINOPRIL 20 MG TAB PO SCH (11:13)
--- NOTE | 2019-10-25 12:00 | NUR ---
IV insertion IV access obtained, via clean sterile technique by inserting 22 gauge catheter to the right forearm after one attempt. IV secured properly. No trauma to site. Patient tolerated well. Took out IV to the left forearm due to leaking.
[2019-10-25 13:00] VITALS: BP 135/75
[2019-10-25 13:06] LABS: Hepatitis B Core Total AB Negative
[2019-10-25 13:07] LABS: Hepatitis B Surface Antigen Negative (Negative); Hepatitis C Antibody Negative (Negative)
[2019-10-25 16:38] VITALS: BP 147/83
--- NOTE | 2019-10-25 19:10 | NUR ---
PT CHECKED FOR PRN TX. PT DENIES ANY SOB AND RESTING WITH NO ACUTE DISTRESS NOTED. TX IS NOT INDICATED. PT IS AWARE TO CALL IF TX NEEDED. HR 70 RR 16 POX 93% ON ROOM AIR. B/S CLEAR.
[2019-10-25 22:24] VITALS: BP 119/71
--- NOTE | 2019-10-25 22:30 | NUR ---
Patient refused insulin and said only if blood sugar is above 175.
[2019-10-26] MEDS: DOXYCYCLINE 100MG/250ML 250 ML IV SCH ×2 (03:11→15:10)
[2019-10-26 05:20] VITALS: BP 132/83
[2019-10-26 06:33] LABS: Basophils # (auto) 0 10 ^3/uL (0-0.2); Eosinophils # (auto) 0.1 10 ^3/uL (0-0.8); Lymphocytes # (auto) 1.4 10 ^3/uL (0.4-5.4); Monocytes # (auto) 0.6 10 ^3/uL (0-1.3); Neutrophils # (auto) 2.7 10 ^3/uL (1.6-8.6)
[2019-10-26] MEDS: ACCU-CHEK COMFORT CURVE STRIP VI SCH ×3 (06:37→18:07)
[2019-10-26] MEDS: InsuLIN REG 1unit/0.01ml Soln (100units/ml) SC SCH ×3 (06:37→17:00)
--- NOTE | 2019-10-26 06:45 | NUR ---
Respiratory note: ROUTINE PRN ASSESSMENT DONE. HR 67, RR 20, POX 95% ON RA , BS CLEAR. NO SOB OR DISTRESS NOTED AT THIS TIME. PT WAS NOTIFY TO HAVE RN PAGE RT FOR MN TX.
[2019-10-26 06:46] LABS: Basophils % (auto) 0.4 % (0.0-2.0); Eosinophils % (auto) 1.4 % (0.0-7.0); Hematocrit 37.8 % (41.0-53.0); Hemoglobin 13.4 g/dL (13.5-17.5); Lymphocytes % (auto) 29.7 % (10.0-50.0); Mean Corpuscular Hemoglobin 31.4 pg (28.0-32.0); Mean Corpuscular Hgb Conc. 35.5 g/dL (32.0-36.0); Mean Corpuscular Volume 88.3 fL (80.0-100.0); Neutrophils % (auto) 56.5 % (37.0-80.0); Nucleated Red Blood Cells % 0.1 %; Platelet Count (auto) 229 10^3/uL (140-450); Red Blood Cells 4.28 10^6/uL (4.5-5.90); Red Cell Distribution Width 12.8 % (11.8-14.3); White Blood Cell 4.8 10^3/uL (4.4-10.8)
[2019-10-26 06:59] LABS: Albumin 2.8 g/dL (3.4-5.0); Calcium 8.6 mg/dL (8.5-10.1); Potassium 3.5 mmol/L (3.5-5.1)
[2019-10-26 07:05] LABS: BUN/Creatinine Ratio 14.1; Bilirubin, Total 0.4 mg/dL (0.2-1.0); Total Protein 6.4 g/dL (6.4-8.2)
--- NOTE | 2019-10-26 07:28 | NUR ---
Report given to Cassie Zavala, patient is resting no distress.
--- NOTE | 2019-10-26 07:30 | NUR ---
Opening Shift Note Assumed care of patient, awake and alert. No S/S of distress/SOB or pain. For safety, patients bed is locked, in the lowest position, with 2 side rails up and the call light with in reach. Instructed on POC and to call for assist PRN, will continue to monitor for any changes in condition.
[2019-10-26 09:00] VITALS: BP 123/74
[2019-10-26] MEDS: ASPirin 81 mg TAB PO SCH (09:31)
[2019-10-26] MEDS: LISINOPRIL 20 MG TAB PO SCH (09:31)
[2019-10-26 13:00] VITALS: BP 124/76
--- NOTE | 2019-10-26 14:10 | NUR ---
Dr. Currie at bedside with patient to discuss plan of care and discharge instructions.
[2019-10-26] MEDS ORDERED: INFLUENZA QUAD 2019-2020 0.5ml SYRG IM ONE (15:45)
--- NOTE | 2019-10-26 15:50 | NUR ---
NUTRITION ASSESSMENT NOTES Please refer to link notes of nutrition screen form filed under the intervention section of the plan of care for further details. Est. Energy Needs: 2143-2571kcal ( 25-30 kcal/kg BW). Est. Protein Needs: 69-86 gms/day ( 0.8-1.0 gms/kg BW). Will continue to monitor pertinent labs and reassess nutrient need prn Addendum: 10/26/19 at [address] Amended: Links added.
[2019-10-26 16:02] VITALS: BP 124/76
--- NOTE | 2019-10-26 18:02 | NUR ---
Discharge instructions given as ordered. Encourage to follow up with Primary care physician as instructed. All questions and concerns addressed. Patient verbalized understanding. Medication reconciliation form completed and copy given to patient. Home medications held in Pharmacy returned to patient, and needed vaccines given. IV removed with catheter intact, pressure dressing applied. Telemetry unit returned to ICU. Patient taken to vehicle via wheelchair with all personal belongings, accompanied by staff and [facility] member. No distress noted at time of departure.
== END 2019-10-26 18:10 | disposition home or self-care (01) | DRG 869 ==
LOC: ER 10:33 → TELE 10:34 → TELE-WESTW 19:47
PROVIDERS: ADMIT Internal Medicine; ATTEND Internal Medicine
PROC: B246ZZ4 Ultrasonography of Right and Left Heart, Transesophageal (ICD-10-PCS; principal; 2019-10-24)
DX: A79.9 Rickettsiosis, unspecified (principal); E78.5 Hyperlipidemia, unspecified; E11.9 Type 2 diabetes mellitus without complications; I11.9 Hypertensive heart disease without heart failure; I48.91 Unspecified atrial fibrillation; R07.89 Other chest pain; J84.10 Pulmonary fibrosis, unspecified; R79.89 Other specified abnormal findings of blood chemistry; Z79.84 Long term (current) use of oral hypoglycemic drugs; Z79.899 Other long term (current) drug therapy; Z82.49 Family history of ischemic heart disease and other diseases of the circulatory system; Z83.3 Family history of diabetes mellitus; Z88.0 Allergy status to penicillin; Z90.49 Acquired absence of other specified parts of digestive tract; Z28.21 Immunization not carried out because of patient refusal
CPT/HCPCS: 36415; 70450; 71045; 71046; 71275; 76705; 78452; 80048; 80053; 80061; 80076; 81001; 82550; 82962; 83036; 83605; 83735; 83880; 84443; 84484; 85025; 85379; 85610; 85652; 85730; 86141; 86704; 86706; 86708; 86803; 87040; 87070; 87205; 87340; 87501; 87804; 93005; 93017; 93306; 93312; 93970; 96360; 96361; 99152; G0378; J0153; J1956; J2250; J3490

== ENCOUNTER 2019-11-02 09:52 | Emergency (ER) | payer BC, MEDICARE ==
[~2019-11-02] VITALS: Ht 188 cm; Wt 85.7 kg
[~2019-11-02 09:52] MED LIST changes: +METF-370 PO; -METF-916 PO
[2019-11-02 10:14] VITALS: BP 156/84
== END 2019-11-02 11:15 | disposition home or self-care (01) ==
LOC: ER 09:52
DX: R53.1 Weakness (principal); E11.9 Type 2 diabetes mellitus without complications; E78.5 Hyperlipidemia, unspecified; I10 Essential (primary) hypertension; Z90.49 Acquired absence of other specified parts of digestive tract; Z88.0 Allergy status to penicillin

== ENCOUNTER → 2020-01-18 | Outpatient (CLI) | payer BC, MEDICARE ==
[2020-01-18 07:41] LABS: Urine WBC None Seen /hpf (0 - 3)
[2020-01-18 07:46] LABS: Basophils # (auto) 0 10 ^3/uL (0-0.2); Basophils % (auto) 0.7 % (0.0-2.0); Eosinophils # (auto) 0.1 10 ^3/uL (0-0.8); Eosinophils % (auto) 2.3 % (0.0-7.0); Hematocrit 48.1 % (41.0-53.0); Hemoglobin 16.4 g/dL (13.5-17.5); Lymphocytes # (auto) 2.2 10 ^3/uL (0.4-5.4); Lymphocytes % (auto) 38.5 % (10.0-50.0); Mean Corpuscular Hemoglobin 30.8 pg (28.0-32.0); Mean Corpuscular Hgb Conc. 34.1 g/dL (32.0-36.0); Mean Corpuscular Volume 90.4 fL (80.0-100.0); Monocytes # (auto) 0.5 10 ^3/uL (0-1.3); Monocytes % (auto) 8.4 % (0.0-12.0); Neutrophils # (auto) 2.9 10 ^3/uL (1.6-8.6); Neutrophils % (auto) 50.1 % (37.0-80.0); Nucleated Red Blood Cells % 0.1 %; Platelet Count (auto) 185 10^3/uL (140-450); Red Blood Cells 5.32 10^6/uL (4.5-5.90); Red Cell Distribution Width 13.5 % (11.8-14.3); White Blood Cell 5.7 10^3/uL (4.4-10.8)
[2020-01-18 07:51] LABS: Urine Bacteria NONE SEEN /hpf (None Seen); Urine Blood Negative /uL (Negative); Urine Specific Gravity 1.008 (1.001-1.035)
[2020-01-18 08:07] LABS: Albumin 4.2 g/dL (3.4-5.0); Calcium 9.1 mg/dL (8.5-10.1); Potassium 4.2 mmol/L (3.5-5.1)
[2020-01-18 08:13] LABS: Bilirubin, Total 0.8 mg/dL (0.2-1.0); Total Protein 7.7 g/dL (6.4-8.2)
== END | disposition home or self-care (01) ==
LOC: LAB 07:20
PROVIDERS: ATTEND Family Medicine
DX: E78.2 Mixed hyperlipidemia (principal); E11.9 Type 2 diabetes mellitus without complications; R79.89 Other specified abnormal findings of blood chemistry; I10 Essential (primary) hypertension; I48.0 Paroxysmal atrial fibrillation
CPT/HCPCS: 36415; 80053; 80061; 81001; 82043; 83036; 85025

== ENCOUNTER → 2020-04-21 | Outpatient (CLI) | payer BC, MEDICARE ==
[~2020-04-21] MED LIST changes: -ASPI-404 PO; +ASPI-543 PO
== END | disposition home or self-care (01) ==
LOC: LAB 09:32
PROVIDERS: ATTEND Urology
DX: N40.0 Benign prostatic hyperplasia without lower urinary tract symptoms (principal)
CPT/HCPCS: 84153

== ENCOUNTER 2020-05-09 21:04 | Emergency (ER) | payer BC, MEDICARE ==
[~2020-05-09] VITALS: Ht 188 cm; Wt 87.1 kg
[2020-05-09 23:00] LABS: Basophils # (auto) 0 10 ^3/uL (0-0.2); Basophils % (auto) 0.4 % (0.0-2.0); Eosinophils # (auto) 0.2 10 ^3/uL (0-0.8); Hematocrit 45.9 % (41.0-53.0); Hemoglobin 15.3 g/dL (13.5-17.5); Lymphocytes # (auto) 2.6 10 ^3/uL (0.4-5.4); Lymphocytes % (auto) 32.8 % (10.0-50.0); Mean Corpuscular Hemoglobin 31.4 pg (28.0-32.0); Mean Corpuscular Hgb Conc. 33.4 g/dL (32.0-36.0); Mean Corpuscular Volume 94.1 fL (80.0-100.0); Monocytes # (auto) 0.7 10 ^3/uL (0-1.3); Monocytes % (auto) 8.6 % (0.0-12.0); Neutrophils # (auto) 4.4 10 ^3/uL (1.6-8.6); Neutrophils % (auto) 56.2 % (37.0-80.0); Nucleated Red Blood Cells % 0.1 %; Platelet Count (auto) 208 10^3/uL (140-450); Red Blood Cells 4.88 10^6/uL (4.5-5.90); Red Cell Distribution Width 13.4 % (11.8-14.3); White Blood Cell 7.8 10^3/uL (4.4-10.8)
[2020-05-09 23:06] LABS: Alanine Aminotransferase 42 U/L (16-61); Albumin 4.3 g/dL (3.4-5.0); Anion Gap 6 (5-15); Aspartate Aminotransferase 24 U/L (15-37); Calcium 8.8 mg/dL (8.5-10.1); Carbon Dioxide 25 mmol/L (21-32); Chloride 110 mmol/L (98-107); Glucose 123 mg/dL (74-106); Potassium 3.5 mmol/L (3.5-5.1); Sodium 141 mmol/L (136-145)
[2020-05-09 23:12] LABS: Alkaline Phosphatase 87 U/L (45-117); BUN/Creatinine Ratio 26.3; Bilirubin, Total 0.6 mg/dL (0.2-1.0); Blood Urea Nitrogen 20 mg/dL (7-18); GFR African American 132 mL/min; GFR Non-African American 109 mL/min; Total Protein 7.3 g/dL (6.4-8.2)
[2020-05-10 10:02] VITALS: BP 135/70
== END 2020-05-10 10:01 | disposition home or self-care (01) ==
LOC: ER 21:04
DX: R07.89 Other chest pain (principal); K21.9 Gastro-esophageal reflux disease without esophagitis; I48.91 Unspecified atrial fibrillation; E11.9 Type 2 diabetes mellitus without complications; E78.5 Hyperlipidemia, unspecified; I10 Essential (primary) hypertension; Z79.899 Other long term (current) drug therapy; Z79.82 Long term (current) use of aspirin; Z88.0 Allergy status to penicillin
CPT/HCPCS: 36415; 71045; 80053; 84484; 85025; 93005

== ENCOUNTER → 2021-02-24 | Outpatient (CLI) | payer BC, MEDICARE ==
[~2021-02-24] MED LIST changes: +GEMF-19 PO; -GEMF600T7 PO; -LISI-646 PO; +LISI20TA28 PO
[2021-02-24 09:08] LABS: Urine WBC None Seen /hpf (0 - 3)
[2021-02-24 09:15] LABS: Basophils # (auto) 0 10 ^3/uL (0-0.2); Basophils % (auto) 0.4 % (0.0-2.0); Eosinophils # (auto) 0.1 10 ^3/uL (0-0.8); Eosinophils % (auto) 1.4 % (0.0-7.0); Hematocrit 46.1 % (41.0-53.0); Hemoglobin 16.3 g/dL (13.5-17.5); Lymphocytes % (auto) 28.5 % (10.0-50.0); Mean Corpuscular Hemoglobin 31.8 pg (28.0-32.0); Mean Corpuscular Hgb Conc. 35.4 g/dL (32.0-36.0); Monocytes # (auto) 0.5 10 ^3/uL (0-1.3); Monocytes % (auto) 7.8 % (0.0-12.0); Neutrophils # (auto) 4.2 10 ^3/uL (1.6-8.6); Neutrophils % (auto) 61.9 % (37.0-80.0); Nucleated Red Blood Cells % 0.2 %; Platelet Count (auto) 192 10^3/uL (140-450); Red Blood Cells 5.12 10^6/uL (4.5-5.90); Red Cell Distribution Width 12.9 % (11.8-14.3); White Blood Cell 6.8 10^3/uL (4.4-10.8)
[2021-02-24 09:26] LABS: Urine Bacteria NONE SEEN /hpf (None Seen); Urine Blood Negative /uL (Negative); Urine Specific Gravity 1.026 (1.001-1.035)
[2021-02-24 10:05] LABS: BUN/Creatinine Ratio 24.7; Bilirubin, Total 0.7 mg/dL (0.2-1.0); Calcium 8.9 mg/dL (8.5-10.1); Total Protein 7.1 g/dL (6.4-8.2)
[2021-02-24 10:34] LABS: Prostate Specific Antigen 1.02 ng/mL (0.0-4.0)
== END | disposition home or self-care (01) ==
LOC: LAB 08:29
PROVIDERS: ATTEND Family Medicine
DX: E11.9 Type 2 diabetes mellitus without complications (principal); I10 Essential (primary) hypertension; I48.0 Paroxysmal atrial fibrillation; E78.1 Pure hyperglyceridemia; E55.9 Vitamin D deficiency, unspecified; K21.9 Gastro-esophageal reflux disease without esophagitis; E78.49 Other hyperlipidemia
CPT/HCPCS: 36415; 80053; 80061; 81001; 82043; 82306; 82607; 83036; 84153; 85025; 85049

== ENCOUNTER 2021-04-20 10:38 | Emergency (ER) | payer BC, MEDICARE, OTHER ==
[~2021-04-20] VITALS: Ht 188 cm; Wt 88.9 kg
[2021-04-20 10:41] VITALS: BP 129/77
[2021-04-20 12:32] LABS: Basophils # (auto) 0 10 ^3/uL (0-0.2); Basophils % (auto) 0.4 % (0.0-2.0); Eosinophils # (auto) 0 10 ^3/uL (0-0.8); Eosinophils % (auto) 0.3 % (0.0-7.0); Hematocrit 45.4 % (41.0-53.0); Hemoglobin 16.1 g/dL (13.5-17.5); Lymphocytes # (auto) 1.9 10 ^3/uL (0.4-5.4); Lymphocytes % (auto) 27.4 % (10.0-50.0); Mean Corpuscular Hemoglobin 31.8 pg (28.0-32.0); Mean Corpuscular Hgb Conc. 35.5 g/dL (32.0-36.0); Mean Corpuscular Volume 89.4 fL (80.0-100.0); Monocytes # (auto) 0.5 10 ^3/uL (0-1.3); Monocytes % (auto) 7.1 % (0.0-12.0); Neutrophils # (auto) 4.6 10 ^3/uL (1.6-8.6); Neutrophils % (auto) 64.8 % (37.0-80.0); Nucleated Red Blood Cells % 0.1 %; Red Blood Cells 5.08 10^6/uL (4.5-5.90); Red Cell Distribution Width 13.1 % (11.8-14.3); White Blood Cell 7.1 10^3/uL (4.4-10.8)
[2021-04-20 12:35] LABS: Chloride 112 mmol/L (98-107); Sodium 142 mmol/L (136-145)
[2021-04-20 12:46] LABS: Alanine Aminotransferase 45 U/L (16-61); Albumin 3.8 g/dL (3.4-5.0); Alkaline Phosphatase 84 U/L (45-117); Anion Gap 6 (5-15); Aspartate Aminotransferase 25 U/L (15-37); BUN/Creatinine Ratio 23.3; Bilirubin, Total 0.6 mg/dL (0.2-1.0); Blood Urea Nitrogen 17 mg/dL (7-18); Calcium 8.6 mg/dL (8.5-10.1); Carbon Dioxide 24 mmol/L (21-32); GFR African American 138 mL/min; GFR Non-African American 114 mL/min; Glucose 119 mg/dL (74-106); Total Protein 7.2 g/dL (6.4-8.2)
== END 2021-04-20 13:20 | disposition home or self-care (01) ==
LOC: ER 10:50
DX: R07.89 Other chest pain (principal); M54.12 Radiculopathy, cervical region; I48.91 Unspecified atrial fibrillation; E78.5 Hyperlipidemia, unspecified; I10 Essential (primary) hypertension; E11.9 Type 2 diabetes mellitus without complications; Z88.0 Allergy status to penicillin; Z79.899 Other long term (current) drug therapy; Z79.82 Long term (current) use of aspirin; Z79.84 Long term (current) use of oral hypoglycemic drugs; Z90.49 Acquired absence of other specified parts of digestive tract
CPT/HCPCS: 36415; 71045; 72125; 80053; 84484; 85025; 93005

== ENCOUNTER → 2021-11-10 | Outpatient (CLI) | payer OTHER ==
[2021-11-10 09:50] LABS: Basophils # (auto) 0 10 ^3/uL (0-0.2); Basophils % (auto) 0.5 % (0.0-2.0); Eosinophils # (auto) 0.1 10 ^3/uL (0-0.8); Hematocrit 45.6 % (41.0-53.0); Hemoglobin 16.1 g/dL (13.5-17.5); Lymphocytes # (auto) 2.5 10 ^3/uL (0.4-5.4); Lymphocytes % (auto) 42.5 % (10.0-50.0); Mean Corpuscular Hemoglobin 31.5 pg (28.0-32.0); Mean Corpuscular Hgb Conc. 35.2 g/dL (32.0-36.0); Mean Corpuscular Volume 89.5 fL (80.0-100.0); Monocytes # (auto) 0.4 10 ^3/uL (0-1.3); Neutrophils # (auto) 2.8 10 ^3/uL (1.6-8.6); Nucleated Red Blood Cells % 0.9 %; Red Cell Distribution Width 13.6 % (11.8-14.3); White Blood Cell 5.8 10^3/uL (4.4-10.8)
[2021-11-10 11:02] LABS: Albumin 4.1 g/dL (3.4-5.0); BUN/Creatinine Ratio 20.2; Bilirubin, Total 0.8 mg/dL (0.2-1.0); Total Protein 7.2 g/dL (6.4-8.2)
== END | disposition home or self-care (01) ==
LOC: LAB 08:47
PROVIDERS: ATTEND Student in an Organized Health Care Education/Training Program
DX: E11.9 Type 2 diabetes mellitus without complications (principal); I48.0 Paroxysmal atrial fibrillation; E78.1 Pure hyperglyceridemia; I10 Essential (primary) hypertension
CPT/HCPCS: 36415; 80053; 80061; 85025

== ENCOUNTER → 2021-11-11 | Outpatient (CLI) | payer OTHER | END | disposition home or self-care (01) | LOC: LAB 11:44 | PROVIDERS: ATTEND Student in an Organized Health Care Education/Training Program | DX: E11.9 Type 2 diabetes mellitus without complications (principal); I48.0 Paroxysmal atrial fibrillation; E78.1 Pure hyperglyceridemia; I10 Essential (primary) hypertension | CPT/HCPCS: 82274 ==

== ENCOUNTER → 2022-03-31 | Outpatient (CLI) | payer OTHER | END | disposition home or self-care (01) | LOC: LAB 07:18 | PROVIDERS: ATTEND Urology | DX: N40.0 Benign prostatic hyperplasia without lower urinary tract symptoms (principal) | CPT/HCPCS: 84153 ==

== ENCOUNTER 2022-10-03 17:53 | Emergency (ER) | payer OTHER ==
[~2022-10-03] VITALS: Ht 188 cm; Wt 93.0 kg
[2022-10-03 18:20] VITALS: BP 180/88
[2022-10-03 19:10] LABS: Basophils # (auto) 0 10 ^3/uL (0-0.2); Basophils % (auto) 0.4 % (0.0-2.0); Eosinophils # (auto) 0.1 10 ^3/uL (0-0.8); Eosinophils % (auto) 1.6 % (0.0-7.0); Hematocrit 47.3 % (41.0-53.0); Hemoglobin 16.3 g/dL (13.5-17.5); Lymphocytes # (auto) 2.4 10 ^3/uL (0.4-5.4); Lymphocytes % (auto) 29.1 % (10.0-50.0); Mean Corpuscular Hemoglobin 31.8 pg (28.0-32.0); Mean Corpuscular Hgb Conc. 34.5 g/dL (32.0-36.0); Mean Corpuscular Volume 92.2 fL (80.0-100.0); Monocytes # (auto) 0.7 10 ^3/uL (0-1.3); Monocytes % (auto) 8.3 % (0.0-12.0); Neutrophils % (auto) 60.6 % (37.0-80.0); Nucleated Red Blood Cells % 0.2 %; Red Blood Cells 5.13 10^6/uL (4.5-5.90); White Blood Cell 8.2 10^3/uL (4.4-10.8)
[2022-10-03 19:26] LABS: Albumin 4.4 g/dL (3.4-5.0); Potassium 4.7 mmol/L (3.5-5.1)
[2022-10-03 19:29] LABS: BUN/Creatinine Ratio 31.8; Bilirubin, Total 0.3 mg/dL (0.2-1.0); Total Protein 7.2 g/dL (6.4-8.2)
== END 2022-10-04 01:50 | disposition home or self-care (01) ==
LOC: ER 17:53
DX: S00.03XA Contusion of scalp, initial encounter (principal); S00.01XA Abrasion of scalp, initial encounter; I48.91 Unspecified atrial fibrillation; E11.9 Type 2 diabetes mellitus without complications; I10 Essential (primary) hypertension; E78.5 Hyperlipidemia, unspecified; Z88.0 Allergy status to penicillin; Z79.899 Other long term (current) drug therapy; W18.09XA Striking against other object with subsequent fall, initial encounter; Y93.67 Activity, basketball; Y92.89 Other specified places as the place of occurrence of the external cause; Y99.8 Other external cause status
CPT/HCPCS: 36415; 70450; 80053; 84484; 85025

== ENCOUNTER → 2023-01-18 | Outpatient (CLI) | payer OTHER ==
[~2023-01-18] MED LIST changes: -GEMF-19 PO; +GEMF-66 PO; -LISI20TA28 PO; +LISI20TA56 PO
[2023-01-18 08:32] LABS: Basophils # (auto) 0 10 ^3/uL (0-0.2); Basophils % (auto) 0.6 % (0.0-2.0); Eosinophils # (auto) 0.1 10 ^3/uL (0-0.8); Eosinophils % (auto) 1.5 % (0.0-7.0); Hematocrit 44.1 % (41.0-53.0); Hemoglobin 15.4 g/dL (13.5-17.5); Lymphocytes # (auto) 2.3 10 ^3/uL (0.4-5.4); Lymphocytes % (auto) 41.5 % (10.0-50.0); Mean Corpuscular Hemoglobin 31.7 pg (28.0-32.0); Mean Corpuscular Hgb Conc. 34.9 g/dL (32.0-36.0); Mean Corpuscular Volume 90.8 fL (80.0-100.0); Monocytes # (auto) 0.5 10 ^3/uL (0-1.3); Monocytes % (auto) 8.4 % (0.0-12.0); Neutrophils # (auto) 2.6 10 ^3/uL (1.6-8.6); Nucleated Red Blood Cells % 0.1 %; Red Blood Cells 4.86 10^6/uL (4.5-5.90); Red Cell Distribution Width 13.3 % (11.8-14.3); White Blood Cell 5.4 10^3/uL (4.4-10.8)
[2023-01-18 09:22] LABS: Cholesterol 89 mg/dL (< 200)
[2023-01-18 09:25] LABS: HDL Cholesterol 42 mg/dL (40-59); LDL Cholesterol 47 mg/dL (< 100); Triglycerides 62 mg/dL (< 150)
[2023-01-18 11:10] LABS: Creatinine, Urine 146 mg/dL (30.0-125.0)
[2023-01-18 11:21] LABS: Micro Albumin 9.96 mg/L (0-30.0)
== END | disposition home or self-care (01) ==
LOC: LAB 08:16
PROVIDERS: ATTEND Student in an Organized Health Care Education/Training Program
DX: Z12.11 Encounter for screening for malignant neoplasm of colon (principal); E11.9 Type 2 diabetes mellitus without complications; I48.0 Paroxysmal atrial fibrillation; I10 Essential (primary) hypertension; E78.1 Pure hyperglyceridemia
CPT/HCPCS: 36415; 80061; 82043; 82274; 82570; 83036; 85025

== ENCOUNTER → 2023-04-04 | Outpatient (CLI) | payer OTHER | END | disposition home or self-care (01) | LOC: LAB 10:11 | PROVIDERS: ATTEND Urology | DX: R97.20 Elevated prostate specific antigen [PSA] (principal) | CPT/HCPCS: 84153 ==

== ENCOUNTER → 2024-02-07 | Outpatient (CLI) | payer OTHER | END | disposition home or self-care (01) | LOC: XYW 09:42 | PROVIDERS: ATTEND Student in an Organized Health Care Education/Training Program | DX: I51.89 Other ill-defined heart diseases (principal); I25.118 Atherosclerotic heart disease of native coronary artery with other forms of angina pectoris | CPT/HCPCS: 93306 ==

== ENCOUNTER 2024-03-18 17:09 | Emergency (ER) | payer OTHER ==
[~2024-03-18] VITALS: Ht 188 cm; Wt 89.9 kg
[2024-03-18 17:29] VITALS: BP 176/88; PULSE 83; RESP 16; O2SAT 96
[2024-03-18 18:53] LABS: Basophils # (auto) 0 10 ^3/uL (0-0.2); Basophils % (auto) 0.4 % (0.0-2.0); Eosinophils # (auto) 0 10 ^3/uL (0-0.8); Eosinophils % (auto) 0.4 % (0.0-7.0); Hemoglobin 14.4 g/dL (13.5-17.5); Lymphocytes # (auto) 2.6 10 ^3/uL (0.4-5.4); Lymphocytes % (auto) 29.3 % (10.0-50.0); Mean Corpuscular Hgb Conc. 35.2 g/dL (32.0-36.0); Mean Corpuscular Volume 90.9 fL (80.0-100.0); Monocytes # (auto) 0.8 10 ^3/uL (0-1.3); Monocytes % (auto) 9.6 % (0.0-12.0); Neutrophils # (auto) 5.3 10 ^3/uL (1.6-8.6); Neutrophils % (auto) 60.3 % (37.0-80.0); Nucleated Red Blood Cells % 0.2 %; Red Blood Cells 4.51 10^6/uL (4.5-5.90); White Blood Cell 8.8 10^3/uL (4.4-10.8)
[2024-03-18 19:00] LABS: Chloride 105 mmol/L (98-107); Potassium 4.3 mmol/L (3.5-5.1); Sodium 138 mmol/L (136-145)
[2024-03-18 19:01] LABS: Anion Gap 7 (5-15); Carbon Dioxide 26 mmol/L (20-30)
[2024-03-18 19:02] LABS: Calcium 9.2 mg/dL (8.7-10.4)
[2024-03-18 19:07] LABS: BUN/Creatinine Ratio 16.9 (10.0-20.0); Blood Urea Nitrogen 13 mg/dL (9-23); Glucose 161 mg/dL (74-106)
[2024-03-18] MEDS ORDERED: METH4PAK PO (19:26)
[2024-03-18] MEDS ORDERED: AZIT1POW PO (19:26)
== END 2024-03-18 20:05 | disposition home or self-care (01) ==
LOC: ER 17:09
DX: J20.9 Acute bronchitis, unspecified (principal); I48.91 Unspecified atrial fibrillation; E11.9 Type 2 diabetes mellitus without complications; E78.5 Hyperlipidemia, unspecified; I10 Essential (primary) hypertension; Z88.0 Allergy status to penicillin; Z79.82 Long term (current) use of aspirin; Z79.899 Other long term (current) drug therapy; Z90.49 Acquired absence of other specified parts of digestive tract; Z90.89 Acquired absence of other organs
CPT/HCPCS: 36415; 71046; 80048; 83605; 85025

== ENCOUNTER → 2024-04-03 | Outpatient (CLI) | payer OTHER ==
[~2024-04-03] MED LIST changes: +AZIT1POW PO; +METH4PAK PO
[2024-04-03 08:48] LABS: Basophils # (auto) 0 10 ^3/uL (0-0.2); Basophils % (auto) 0.3 % (0.0-2.0); Eosinophils # (auto) 0.1 10 ^3/uL (0-0.8); Eosinophils % (auto) 0.9 % (0.0-7.0); Lymphocytes # (auto) 3.3 10 ^3/uL (0.4-5.4); Lymphocytes % (auto) 42.8 % (10.0-50.0); Mean Corpuscular Hemoglobin 31.6 pg (28.0-32.0); Mean Corpuscular Hgb Conc. 34.2 g/dL (32.0-36.0); Mean Corpuscular Volume 92.3 fL (80.0-100.0); Monocytes # (auto) 0.5 10 ^3/uL (0-1.3); Monocytes % (auto) 6.3 % (0.0-12.0); Neutrophils # (auto) 3.9 10 ^3/uL (1.6-8.6); Neutrophils % (auto) 49.7 % (37.0-80.0); Nucleated Red Blood Cells % 0.1 %; Red Blood Cells 4.76 10^6/uL (4.5-5.90); Red Cell Distribution Width 13.4 % (11.8-14.3); White Blood Cell 7.8 10^3/uL (4.4-10.8)
[2024-04-03 09:10] LABS: Alanine Aminotransferase 28 U/L (7-40); Alkaline Phosphatase 87 U/L (46-116); Anion Gap 5 (5-15); BUN/Creatinine Ratio 17.3 (10.0-20.0); Blood Urea Nitrogen 14 mg/dL (9-23); Carbon Dioxide 29 mmol/L (20-30); Chloride 107 mmol/L (98-107); Glucose 156 mg/dL (74-106); LDL Cholesterol 82 mg/dL (< 100); Potassium 4.5 mmol/L (3.5-5.1); Sodium 141 mmol/L (136-145); Triglycerides 162 mg/dL (< 150)
[2024-04-03 09:11] LABS: Albumin 4.4 g/dL (3.2-4.8); Aspartate Aminotransferase 21 U/L (13-40); Bilirubin, Total 0.8 mg/dL (0.2-1.0); Cholesterol 150 mg/dL (< 200); HDL Cholesterol 41 mg/dL (40-59); Total Protein 6.7 g/dL (5.7-8.2)
[2024-04-03 09:29] LABS: Creatinine, Urine 70.74 mg/dL (30.0-125.0)
[2024-04-03 09:31] LABS: Micro Albumin < 3.0 mg/L (<30.0)
== END | disposition home or self-care (01) ==
LOC: LAB 08:07
PROVIDERS: ATTEND Student in an Organized Health Care Education/Training Program
DX: I25.118 Atherosclerotic heart disease of native coronary artery with other forms of angina pectoris (principal); E11.65 Type 2 diabetes mellitus with hyperglycemia; I48.0 Paroxysmal atrial fibrillation; I10 Essential (primary) hypertension; E78.2 Mixed hyperlipidemia
CPT/HCPCS: 36415; 80053; 80061; 82043; 82274; 82570; 83036; 85025

== ENCOUNTER → 2024-04-05 | Outpatient (CLI) | payer OTHER ==
[~2024-04-05] VITALS: Ht 188 cm; Wt 86.2 kg
[2024-04-05] MEDS: ADENOSINE 72 MG in GIVE UN-DILUTED 0 ML IV ONE (09:19)
== END | disposition home or self-care (01) ==
LOC: XYW 07:51
PROVIDERS: ATTEND Student in an Organized Health Care Education/Training Program
DX: I48.0 Paroxysmal atrial fibrillation (principal); R07.9 Chest pain, unspecified
CPT/HCPCS: 78452; 93017; A9500; J0153

== ENCOUNTER 2025-02-13 07:36 | Day surgery (SDC) | payer OTHER ==
[2025-02-11 15:05] LABS: Urine Bacteria None Seen /hpf (None Seen)
[2025-02-11 15:12] LABS: Basophils # (auto) 0 10 ^3/uL (0-0.2); Basophils % (auto) 0.5 % (0.0-2.0); Eosinophils # (auto) 0 10 ^3/uL (0-0.8); Eosinophils % (auto) 0.6 % (0.0-7.0); Hematocrit 42.3 % (41.0-53.0); Hemoglobin 14.6 g/dL (13.5-17.5); Lymphocytes # (auto) 2.8 10 ^3/uL (0.4-5.4); Lymphocytes % (auto) 43.2 % (10.0-50.0); Mean Corpuscular Hemoglobin 31.9 pg (28.0-32.0); Mean Corpuscular Hgb Conc. 34.6 g/dL (32.0-36.0); Mean Corpuscular Volume 92.2 fL (80.0-100.0); Monocytes # (auto) 0.3 10 ^3/uL (0-1.3); Monocytes % (auto) 5.4 % (0.0-12.0); Neutrophils # (auto) 3.2 10 ^3/uL (1.6-8.6); Neutrophils % (auto) 50.3 % (37.0-80.0); Nucleated Red Blood Cells % 0.1 %; Platelet Count (auto) 171 10^3/uL (140-450); Red Blood Cells 4.59 10^6/uL (4.5-5.90); Red Cell Distribution Width 13.2 % (11.8-14.3); White Blood Cell 6.4 10^3/uL (4.4-10.8)
[2025-02-11 15:27] LABS: INR 1.04 (0.9-1.15); Partial Thromboplastin Time 26.6 SEC (24.5-34.5)
[2025-02-11 15:53] LABS: Urine Blood Negative /uL (Negative); Urine Clarity Clear (Clear); Urine Color Light-Yellow (Yellow); Urine Protein, UAD Negative (Negative); Urine Specific Gravity 1.016 (1.001-1.035); Urine Squamous Epithelial Cell FEW /hpf (<5); Urine Urobilinogen Normal (Negative); Urine WBC < 1 /HPF (0-3)
[2025-02-11 16:02] LABS: Alanine Aminotransferase 21 U/L (7-40); Albumin 4.2 g/dL (3.2-4.8); Alkaline Phosphatase 73 U/L (46-116); Anion Gap 9 (5-15); Aspartate Aminotransferase 21 U/L (<34); BUN/Creatinine Ratio 15.7 (10.0-20.0); Bilirubin, Total 0.6 mg/dL (0.2-1.0); Blood Urea Nitrogen 13 mg/dL (9-23); Calcium 9.6 mg/dL (8.7-10.4); Carbon Dioxide 27 mmol/L (20-31); Total Protein 6.3 g/dL (5.7-8.2)
[2025-02-11 16:03] LABS: Chloride 109 mmol/L (98-107); Glucose 192 mg/dL (74-106); Potassium 3.5 mmol/L (3.5-5.1); Sodium 145 mmol/L (136-145)
[~2025-02-13] VITALS: Ht 188 cm; Wt 88.5 kg
[~2025-02-13 07:36] MED LIST changes: -AZIT1POW PO; -CHOL400C12 PO; +CYAN-37 PO; -CYAN1TAB14 PO; -GEMF-66 PO; +GLUC1TAB41 PO; -METH4PAK PO; +MULT-608 OR; +[UNRECOGNIZED DRUG - CODE] PO
[2025-02-13] MEDS ORDERED: LIDOCAINE 2% (LOCAL ANESTH.) PF 5ml SDV ONE (09:48)
[2025-02-13] MEDS ORDERED: ONDANSETRON HCL 4 MG/2 ML VIAL ONE (09:48)
[2025-02-13] MEDS ORDERED: GLYCOPYRROLATE 0.2 MG/ML 1ML VIAL ONE (09:48)
[2025-02-13] MEDS ORDERED: KETOROLAC TROMETH 30 MG/ML 1ML VIAL ONE (09:48)
[2025-02-13] MEDS ORDERED: fentaNYL CITRATE 100 MCG/2 ML VL ONE (09:48)
[2025-02-13] MEDS ORDERED: PROPOFOL 10 MG/ML 20 ML IV ONE (09:48)
[2025-02-13] MEDS ORDERED: MIDAZOLAM HCL 2MG/2ML 2ml VIAL (1mg/ml) ONE (09:48)
[2025-02-13] MEDS ORDERED: HYDROmorphone HCL 2 MG/ML VL/or syr ONE (10:14)
[2025-02-13] MEDS ORDERED: ePHEDrine SULFATE 50 MG/ML AMP ONE (10:23)
[2025-02-13] MEDS: levoFLOXacin 500MG 100 ML IV ONE (10:30)
[2025-02-13] MEDS: LIDOCAINE W/ EPINEPHRINE 1% 20ML VIAL ONE (10:45)
[2025-02-13] MEDS: BUPIVACAINE HCL 0.25% P/F 10 ML VIAL ONE (10:45)
[2025-02-13 10:49] VITALS: TEMP 98.7; O2SAT 98
[2025-02-13] MEDS ORDERED: ACCU-CHEK COMFORT CURVE STRIP VI ONE (11:00)
[2025-02-13] MEDS ORDERED: HYDROmorphone HCL 2 MG/ML VL/or syr IV PRN (11:00)
[2025-02-13] MEDS ORDERED: ONDANSETRON HCL 4 MG/2 ML VIAL IV ONE (11:00)
--- NOTE | 2025-02-13 11:20 | DVHOP ---
DATE OF SURGERY: 02/13/2025 PREOPERATIVE DIAGNOSIS: Lipoma, left upper arm. POSTOPERATIVE DIAGNOSIS: Lipoma, left upper arm. SURGEON: Jose Manuel Molina MD [facility] DIRECTOR: Max Londono NP ANESTHESIA: General ANESTHESIOLOGIST: Dr. Smart PROCEDURE: Excision of lipoma, left upper arm. DESCRIPTION OF PROCEDURE: Under adequate anesthesia with the patient's skin prepped and draped, a longitudinal incision was made over the lipoma, which measured approximately 12 cm in length and 6 cm in diameter. The patient's skin and subcutaneous tissues were divided and the lipoma was then excised in its entirety and submitted for histopathologic examination. The wound was irrigated. Irrigant was aspirated. Hemostasis was meticulously accomplished. The wound closed in several layers of 2-0 Monocryl suture. Skin approximated using 3-0 Monocryl with Dermabond glue and Steri-Strips. Bruce wrap was applied loosely over the patient's left upper arm. He tolerated the procedure well and left the operating room following an accurate needle and sponge count. was thoroughly informed at [phone]. MD CHARLIE Lopez/GARY TID: [id number] RECEIPT: [id number]
[2025-02-13 11:53] VITALS: BP 152/81; PULSE 61; RESP 16; O2SAT 96
== END 2025-02-13 11:59 | disposition home or self-care (01) ==
LOC: SUR 07:36
PROVIDERS: ATTEND Surgery
DX: D17.22 Benign lipomatous neoplasm of skin and subcutaneous tissue of left arm (principal); I10 Essential (primary) hypertension; I48.91 Unspecified atrial fibrillation; G40.909 Epilepsy, unspecified, not intractable, without status epilepticus; E11.9 Type 2 diabetes mellitus without complications; Z88.0 Allergy status to penicillin; Z90.89 Acquired absence of other organs; Z79.82 Long term (current) use of aspirin; Z79.84 Long term (current) use of oral hypoglycemic drugs; Z79.01 Long term (current) use of anticoagulants; Z79.899 Other long term (current) drug therapy
CPT/HCPCS: 24071; 36415; 80053; 81001; 82962; 85025; 85610; 85730; 88305; J1171; J1885; J1956; J2003; J2250; J2405; J2704; J3010; J3490

== ENCOUNTER 2025-03-25 10:13 | Outpatient (CLI) | payer OTHER ==
[2025-03-25 11:03] LABS: Hematocrit 45.1 % (41.0-53.0); Hemoglobin 16.0 g/dL (13.5-17.5); Mean Corpuscular Hemoglobin 32.6 pg (28.0-32.0); Mean Corpuscular Volume 91.9 fL (80.0-100.0); Nucleated Red Blood Cells % 0.1 %
[2025-03-25 11:12] LABS: Alanine Aminotransferase 22 U/L (7-40); Albumin 4.5 g/dL (3.2-4.8); Alkaline Phosphatase 85 U/L (46-116); Anion Gap 9 (5-15); BUN/Creatinine Ratio 19.2 (10.0-20.0); Blood Urea Nitrogen 14 mg/dL (9-23); Calcium 9.0 mg/dL (8.7-10.4); Carbon Dioxide 26 mmol/L (20-31); Potassium 4.5 mmol/L (3.5-5.1); Sodium 143 mmol/L (136-145); Total Protein 6.7 g/dL (5.7-8.2); Triglycerides 142 mg/dL (< 150)
[2025-03-25 11:13] LABS: Bilirubin, Total 0.7 mg/dL (0.2-1.0); Cholesterol 168 mg/dL (< 200); HDL Cholesterol 43 mg/dL (40-59)
[2025-03-25 11:14] LABS: Chloride 108 mmol/L (98-107); Glucose 141 mg/dL (74-106)
[2025-03-25 11:17] LABS: Urine Protein, UAD Negative (Negative)
== END 2025-03-25 17:00 | disposition home or self-care (01) ==
LOC: LAB 10:13
PROVIDERS: ATTEND Nurse Practitioner
DX: I10 Essential (primary) hypertension (principal); E78.5 Hyperlipidemia, unspecified; E11.9 Type 2 diabetes mellitus without complications; Z79.899 Other long term (current) drug therapy
CPT/HCPCS: 36415; 80053; 80061; 81001; 82043; 82274; 83036; 84153; 84443; 85025